=== PATIENT | female | born 1980 | race African-American/Black ===

== ENCOUNTER → 2020-06-11 | Outpatient (CLI) | payer BC, OTHER ==
[~2020-06-11] MED LIST: COLACE100 MG; IBUPROFEN 200200 M1 PO; IBUPROFEN 800800 M1; LORTAB; MOM; MULTIVITAMINS PO; NORCO 5-325 TA1 EACH PO; VISTARIL 25 MG25 M1; ZANTAC PO
== END ==
LOC: LAB 14:13
PROVIDERS: ATTEND Nurse Practitioner
DX: J02.9 Acute pharyngitis, unspecified (principal); M79.18 Myalgia, other site; Z20.828 Contact with and (suspected) exposure to other viral communicable diseases